=== PATIENT | male | born 1985 | race Two or more races ===

== ENCOUNTER 2021-01-05 10:46 | Emergency (ER) | payer SELFPAY ==
--- NOTE | 2021-01-05 10:55 | EDM.PDOC ---
ED HPI GENERAL MEDICAL PROBLEM - General Chief Complaint: Fever Stated Complaint: COUGH, FEVER Time Seen by Provider: 01/05/21 10:46 Source of Information: Reports: Patient. Denies: Old Records (No [facility] records available) History Limitations: Reports: No Limitations - History of Present Illness INITIAL COMMENTS - FREE TEXT/NARRATIVE: Patient drove himself to the emergency room via private automobile for evaluation of persistent nonspecific dyspnea, nonproductive cough, and 8/10 pleuritic type symptoms with symptoms present for the last 2 weeks. He did receive his first Moderna COVID-19 immunization 3 weeks ago with symptoms starting shortly thereafter, including fever and chills, nonspecific fatigue, etc. He was evaluated by his regular provider 3 days ago with apparent negative Covid test at that time. He is missing work today. The patient did not get an influenza booster this past season. His cough is worsened today with some secondary emesis. The patient did take Tylenol yesterday evening but no other recent antipyretic medications or known exposure to infection. No recent history of abdominal pain, heartburn, nausea, diarrhea, melena, gross hematochezia, or any food intolerance, including fatty foods, etc.. The patient denies any chest pressure, heart flutter, dizziness, orthostasis, orthopnea, diaphoresis, paresthesias, recent decreased exercise tolerance, or any other anginal-type symptoms. No history of recent headaches, visual changes, diplopia, change in mental status, or other change in neurological status. He denies any gross hematuria, colic, or other UTI symptoms. Onset: Gradual, Other (As above) Duration: Week(s):, Getting Worse Location: Reports: Chest. Denies: Head, Face, Neck, Abdomen, Back, Upper Extremity, Left, Upper Extremity, Right, Radiates to Quality: Reports: Ache Severity: Moderate Improves with: Reports: None Worsens with: Reports: None Context: Reports: Other (As above). Denies: Sick Contact, Trauma Associated Symptoms: Reports: Chest Pain (Pleurisy), Cough, Fever/Chills, Nausea/Vomiting (As above. No current nausea), Shortness of Breath. Denies: Confusion, cough w sputum, Diaphoresis, Headaches, Loss of Appetite, Rash, Seizure, Weakness Treatments LIFELINE REPRESENTATIVES: Reports: Acetaminophen Throat Pain Score (Numeric/FACES): 8 (Actually chest pain/pleurisy) - Related Data Allergies Allergy/AdvReac Type Severity Reaction Status Date / Time No Known Allergies Allergy Verified 01/05/21 10:51 Home Meds: Home Meds Budesonide [Pulmicort Flexhaler] 1 inhalation INH BID #1 inhaler 01/05/21 [Rx] glipiZIDE [Glucotrol XL] 20 mg PO DAILY 01/05/21 [History] metFORMIN [Glucophage] 1,000 mg PO BIDMEALS 01/05/21 [History] Past Medical History Endocrine/Metabolic History: Reports: Diabetes, Type II - Infectious Disease History Infectious Disease History: Denies: Novel Coronavirus (Initial Moderna in December 2020.) Social & Family History - Tobacco Use Tobacco Use Status *Q: Never Tobacco User Tobacco Use Within Last Twelve Months: No Used Tobacco, but Quit: No Smoking Cessation Information Provided To Patient: No Second Hand Smoke Exposure: No Second Hand Smoke Education Provided: No - Living Situation & Occupation 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 ED EXAM, GENERAL - Physical Exam Exam: See Below Exam Limited By: No Limitations General Appearance: Alert, WD/WN, No Apparent Distress Eye Exam: Bilateral Eye: EOMI, Normal Inspection (No vertigo or nystagmus), PERRL Ears: Normal External Exam, Normal Canal (Moderate cerumen in the left EAC), Hearing Grossly Normal, Normal TMs Nose: Normal Mucosa, No Blood, Clear Rhinorrhea Throat/Mouth: Normal Lips, Normal Gums, Normal Oropharynx, Normal Voice, No Airway Compromise. No: Normal Teeth (Multiple missing teeth with moderate caries in the right lower to last premolars with no evidence of abscess, drainage, etc.), Dysphagia, Inflammation, Perioral Cyanosis Head: Atraumatic, Normocephalic. No: Facial Swelling, Facial Tenderness, Sinus Tenderness Neck: Normal Inspection, Supple, Non-Tender, Full Range of Motion. No: Carotid Bruit, Lymphadenopathy (L), Lymphadenopathy (R), Thyromegaly Respiratory/Chest: No Respiratory Distress, Lungs Clear, Normal Breath Sounds, No Accessory Muscle Use, Chest Non-Tender. No: Pleural Rub, Retractions Cardiovascular: Normal Peripheral Pulses, Regular Rate, Rhythm, No Edema, No Gallop, No JVD, No Murmur, No Rub. No: Gallop/S3, Gallop/S4, Friction Rub Peripheral Pulses: 2+: Radial (L), Radial (R) GI/Abdominal: Normal Bowel Sounds, Soft, Non-Tender, No Organomegaly, No Distention, No Abnormal Bruit, No Mass, Other (Mildly obese). No: Guarding (Male) Exam: Deferred Rectal (Males) Exam: Deferred Back Exam: Normal Inspection, Full Range of Motion. No: CVA Tenderness (L), CVA Tenderness (R), Muscle Spasm Extremities: Normal Inspection, Normal Range of Motion, Non-Tender, No Pedal Edema, Normal Capillary Refill. No: Lisset's Sign Neurological: Alert, Oriented, CN II-XII Intact, Normal Cognition, Normal Gait, Normal Reflexes, No Motor/Sensory Deficits Psychiatric: Normal Affect, Normal Mood Skin Exam: Warm, Dry, Intact, Normal Color, No Rash, Tattoo(s) (Multiple). No: Diaphoretic, Wound/Incision Lymphatic: No Adenopathy Course - Vital Signs Last Recorded V/S: Last Vital Signs Temp 36.8 C 01/05/21 10:46 Pulse 96 01/05/21 10:46 Resp 20 01/05/21 10:46 BP 118/80 01/05/21 10:46 Pulse Ox 96 01/05/21 10:46 - Orders/Labs/Meds Orders: Active Orders 24 hr Category Date Time Status Chest 2V [CR] Stat Exams 01/05/21 10:56 Taken CULTURE BLOOD [BC] Stat Lab 01/05/21 11:13 Received CULTURE BLOOD [BC] Stat Lab 01/05/21 11:17 Received CULTURE URINE [RM] Routine Lab 01/05/21 12:00 Received Blood Culture x2 Reflex Set [OM.PC] Stat Oth 01/05/21 10:56 Ordered Isolation [COMM] Routine Oth 01/05/21 10:56 Active Obtain Past Medical Record [OM.PC] Stat Oth 01/05/21 10:56 Active Peripheral IV Insertion Adult [OM.PC] Stat Oth 01/05/21 10:56 Ordered Resuscitation Status Routine Resus Stat 01/05/21 10:56 Ordered Labs: Laboratory Tests 01/05/21 01/05/21 01/05/21 Range/Units 10:58 11:13 11:13 WBC 10.5 H (4.0-10.2) K/uL RBC 5.04 (4.33-5.41) M/uL Hgb 15.3 (13.1-16.8) g/dL Hct 43.9 (39.0-49.0) % MCV 87.1 (84.0-98.0) fL MCH 30.4 (28.2-33.3) pg MCHC 34.9 (31.7-36.0) g/dL RDW 12.7 (11.2-14.1) % Plt Count 280 (150-350) K/uL Neut % (Auto) 73.3 (45.0-80.0) % Lymph % (Auto) 19.6 (10.0-50.0) % [place] % (Auto) 6.1 (2.0-14.0) % Eos % (Auto) 0.7 (0.0-5.0) % Baso % (Auto) 0.3 (0.0-2.0) % Neut # (Auto) 7.70 H (1.40-7.00) K/uL Lymph # (Auto) 2.06 (0.50-3.50) K/uL [place] # (Auto) 0.64 (0.00-1.00) K/uL Eos # (Auto) 0.07 (0.00-0.50) K/uL Baso # (Auto) 0.03 (0.00-0.20) K/uL PT 9.2 L (9.5-12.0) SEC INR 0.9 APTT 24.1 L (24.5-32.8) SEC D-Dimer, Quantitative (0-400) ng/mL Sodium (136-145) mmol/L Potassium (3.5-5.1) mmol/L Chloride (98-107) mmol/L Carbon Dioxide (21.0-32.0) mmol/L BUN (7-18) mg/dL Creatinine (0.51-1.17) mg/dL Est Cr Clr Drug Dosing mL/min Estimated GFR (MDRD) mL/min Glucose (70-99) mg/dL Lactic Acid (0.4-2.0) mmol/L Calcium (8.5-10.1) mg/dL Magnesium (1.8-2.4) mg/dL Total Bilirubin (0.2-1.0) mg/dL AST (15-37) U/L ALT (12-78) U/L Alkaline Phosphatase (46-116) IU/L Total Protein (6.4-8.2) g/dL Albumin (3.4-5.0) g/dL TSH, Ultra Sensitive (0.358-3.740) mIU/mL Specimen Type Urine Color Urine Appearance Urine pH (5.0-9.0) Ur Specific [place] (1.005-1.030) Urine Protein (NEGATIVE) mg/dL Urine Glucose (UA) (NEGATIVE) mg/dL Urine Ketones (NEGATIVE) mg/dL Urine Occult Blood (NEGATIVE) Urine Nitrite (NEGATIVE) Urine Bilirubin (NEGATIVE) Urine Urobilinogen (0.2-1.0) E.U./dL Ur Leukocyte Esterase (NEGATIVE) U Hyaline Cast (Auto) Urine RBC /HPF Urine WBC /HPF Ur Epithelial Cells /LPF Urine Bacteria (NONE TO FEW) /HPF Urine Mucus (NEGATIVE) /LPF SARS-CoV-2 RNA (BARBARA) Negative (NEGATIVE) 01/05/21 01/05/21 01/05/21 Range/Units 11:13 11:13 11:13 WBC (4.0-10.2) K/uL RBC (4.33-5.41) M/uL Hgb (13.1-16.8) g/dL Hct (39.0-49.0) % MCV (84.0-98.0) fL MCH (28.2-33.3) pg MCHC (31.7-36.0) g/dL RDW (11.2-14.1) % Plt Count (150-350) K/uL Neut % (Auto) (45.0-80.0) % Lymph % (Auto) (10.0-50.0) % [place] % (Auto) (2.0-14.0) % Eos % (Auto) (0.0-5.0) % Baso % (Auto) (0.0-2.0) % Neut # (Auto) (1.40-7.00) K/uL Lymph # (Auto) (0.50-3.50) K/uL [place] # (Auto) (0.00-1.00) K/uL Eos # (Auto) (0.00-0.50) K/uL Baso # (Auto) (0.00-0.20) K/uL PT (9.5-12.0) SEC INR APTT (24.5-32.8) SEC D-Dimer, Quantitative < 100 (0-400) ng/mL Sodium 139 (136-145) mmol/L Potassium 4.2 (3.5-5.1) mmol/L Chloride 102 (98-107) mmol/L Carbon Dioxide 23.1 (21.0-32.0) mmol/L BUN 8 (7-18) mg/dL Creatinine 0.73 (0.51-1.17) mg/dL Est Cr Clr Drug Dosing 116.01 mL/min Estimated GFR (MDRD) > 60 mL/min Glucose 220 H (70-99) mg/dL Lactic Acid 2.4 H (0.4-2.0) mmol/L Calcium 8.2 L (8.5-10.1) mg/dL Magnesium 1.8 (1.8-2.4) mg/dL Total Bilirubin 0.5 (0.2-1.0) mg/dL AST 20 (15-37) U/L ALT 68 (12-78) U/L Alkaline Phosphatase 132 H (46-116) IU/L Total Protein 7.5 (6.4-8.2) g/dL Albumin 4.2 (3.4-5.0) g/dL TSH, Ultra Sensitive 0.373 (0.358-3.740) mIU/mL Specimen Type Urine Color Urine Appearance Urine pH (5.0-9.0) Ur Specific [place] (1.005-1.030) Urine Protein (NEGATIVE) mg/dL Urine Glucose (UA) (NEGATIVE) mg/dL Urine Ketones (NEGATIVE) mg/dL Urine Occult Blood (NEGATIVE) Urine Nitrite (NEGATIVE) Urine Bilirubin (NEGATIVE) Urine Urobilinogen (0.2-1.0) E.U./dL Ur Leukocyte Esterase (NEGATIVE) U Hyaline Cast (Auto) Urine RBC /HPF Urine WBC /HPF Ur Epithelial Cells /LPF Urine Bacteria (NONE TO FEW) /HPF Urine Mucus (NEGATIVE) /LPF SARS-CoV-2 RNA (BARBARA) (NEGATIVE) 01/05/21 Range/Units 12:00 WBC (4.0-10.2) K/uL RBC (4.33-5.41) M/uL Hgb (13.1-16.8) g/dL Hct (39.0-49.0) % MCV (84.0-98.0) fL MCH (28.2-33.3) pg MCHC (31.7-36.0) g/dL RDW (11.2-14.1) % Plt Count (150-350) K/uL Neut % (Auto) (45.0-80.0) % Lymph % (Auto) (10.0-50.0) % [place] % (Auto) (2.0-14.0) % Eos % (Auto) (0.0-5.0) % Baso % (Auto) (0.0-2.0) % Neut # (Auto) (1.40-7.00) K/uL Lymph # (Auto) (0.50-3.50) K/uL [place] # (Auto) (0.00-1.00) K/uL Eos # (Auto) (0.00-0.50) K/uL Baso # (Auto) (0.00-0.20) K/uL PT (9.5-12.0) SEC INR APTT (24.5-32.8) SEC D-Dimer, Quantitative (0-400) ng/mL Sodium (136-145) mmol/L Potassium (3.5-5.1) mmol/L Chloride (98-107) mmol/L Carbon Dioxide (21.0-32.0) mmol/L BUN (7-18) mg/dL Creatinine (0.51-1.17) mg/dL Est Cr Clr Drug Dosing mL/min Estimated GFR (MDRD) mL/min Glucose (70-99) mg/dL Lactic Acid (0.4-2.0) mmol/L Calcium (8.5-10.1) mg/dL Magnesium (1.8-2.4) mg/dL Total Bilirubin (0.2-1.0) mg/dL AST (15-37) U/L ALT (12-78) U/L Alkaline Phosphatase (46-116) IU/L Total Protein (6.4-8.2) g/dL Albumin (3.4-5.0) g/dL TSH, Ultra Sensitive (0.358-3.740) mIU/mL Specimen Type Urincc Urine Color Yellow Urine Appearance Clear Urine pH 5.5 (5.0-9.0) Ur Specific [place] >= 1.030 (1.005-1.030) Urine Protein 30 H (NEGATIVE) mg/dL Urine Glucose (UA) 100 H (NEGATIVE) mg/dL Urine Ketones Trace H (NEGATIVE) mg/dL Urine Occult Blood Small H (NEGATIVE) Urine Nitrite Negative (NEGATIVE) Urine Bilirubin Negative (NEGATIVE) Urine Urobilinogen 0.2 (0.2-1.0) E.U./dL Ur Leukocyte Esterase Negative (NEGATIVE) U Hyaline Cast (Auto) Few Urine RBC 5-10 H /HPF Urine WBC 0-5 /HPF Ur Epithelial Cells Not seen /LPF Urine Bacteria Rare (NONE TO FEW) /HPF Urine Mucus Rare H (NEGATIVE) /LPF SARS-CoV-2 RNA (BARBARA) (NEGATIVE) Urine specimen sent for culture and sensitivity Blood cultures x2 were collected. Microbiology 01/05/21 10:57 Influenza Type A Antigen Screen - Final Nasal, Unspecified NEGATIVE INFLUENZA A VIRUS AG REFERENCE RANGE: NEGATIVE Influenza Type B Antigen Screen - Final NEGATIVE INFLUENZA B VIRUS AG REFERENCE RANGE: NEGATIVE Meds: Medications Discontinued Medications Generic Name Dose Route Start Last Admin Trade Name Freq PRN Reason Stop Dose Admin Budesonide 0.5 mg 01/05/21 10:56 01/05/21 11:25 Budesonide 0.5 Mg/2 Ml Neb Susp NEB 01/05/21 10:57 0.5 mg ONETIME ONE Administration Lactated Ringer's 1,000 mls @ 999 mls/hr 01/05/21 11:56 01/05/21 12:05 Ringers, Lactated IV 01/05/21 12:56 999 mls/hr .BOLUS ONE Administration Sodium Chloride 10 ml 01/05/21 10:56 Sodium Chloride 0.9% 10 Ml Syringe FLUSH ASDIRECTED PRN Keep Vein Open - Radiology Interpretation Free Text/Narrative:: Chest x-ray, PA and lateral shows mild prominence of the proximal aortic arch with mild osteoarthritic changes but no pulmonary infiltrates, pneumothorax, cardiomegaly, CHF, etc. Departure - Departure Time of Disposition: 13:20 Disposition: Home, Self-Care 01 Condition: Good Clinical Impression: Elevated lactic acid level, Hypocalcemia Dyspnea Qualifiers: Dyspnea type: shortness of breath Qualified Code(s): R06.02 - Shortness of breath Diabetes mellitus Qualifiers: Diabetes mellitus type: type 2 Diabetes mellitus group home insulin use: without soil conservationist use Diabetes mellitus complication status: without complication Qualified Code(s): E11.9 - Type 2 diabetes mellitus without complications Fatigue Qualifiers: Fatigue type: other Qualified Code(s): R53.83 - Other fatigue - Discharge Information *PRESCRIPTION DRUG MONITORING PROGRAM REVIEWED*: Not Applicable *COPY OF PRESCRIPTION DRUG MONITORING REPORT IN PATIENT KRYSTLE: Not Applicable Prescriptions: Budesonide [Pulmicort Flexhaler] 1 inhalation INH BID #1 inhaler Referrals: ARVIND BOTELLO [Other] Forms: ED Department Discharge, ED Department Discharge, ED Return to Work/School Form Additional Instructions: 1. Followup with your regular provider on 01/07/2021 with recommended repeat CBC, basic metabolic panel, and lactic acid level at that time as directed. Bring these discharge instructions with you to that visit. 2. Tylenol 650 mg by mouth every 4 hours and/or OTC ibuprofen 2-3 tabs by mouth every 6 hours with food as directed./needed. You may stagger these medications for 48-72 hours only, which essentially means that you are receiving a pain medication about every 2 hours. 3. Work excuse- See Form 4. Encourage oral fluids as discussed, including sports drinks, etc. 5. Immediately after this visit verify that your cellular telephone's voicemail has been activated and is empty. Also verify that your home telephone's answering machine is operating properly and has space to receive messages. Note that it is sometimes necessary for us to be able to contact you at a later date to discuss your medical care. 6. Please remember that we are ALWAYS here for you and want to answer any questions you may have. Feel free to call the hospital any time and we call you back JENNIFER. 7. Consider PFTs/lung function test, further work-up of your fatigue, etc. depending on your clinical course. Note that your thyroid function/TSH was normal today. Sepsis Event Note (ED) - Evaluation Sepsis Screening Result: Possible Sepsis Risk - Focused Exam Vital Signs: Vital Signs Temp Pulse Resp BP Pulse Ox 05/01/21 10:46 36.8 C 96 20 118/80 96 - Problem List & Annotations (1) Dyspnea SNOMED Code(s): 263417815 Code(s): R06.00 - DYSPNEA, UNSPECIFIED Status: Acute Priority: High Onset Date: ~01/05/21 Annotation/Comment:: 2-3-week history of nonspecific dyspnea with negative COVID-19 assessment today and also on 01/02/2019 by his history. He was advised to still get his second COVID-19 immunization as already scheduled. Work excuse provided. Close follow-up by medical provider as per discharge instructions. Some improvement with Pulmicort nebulizer t reatment in the emergency room. Continue Pulmicort inhaler therapy. IM Depo- Medrol not given secondary to patient's history of diabetes. Consider PFTs once his clinical status has stabilized. Qualifiers: Dyspnea type: shortness of breath Qualified Code(s): R06.02 - Shortness of breath; R06.00 - Dyspnea, unspecified; R06.01 - Orthopnea (2) Fatigue SNOMED Code(s): 28462639 Code(s): R53.83 - OTHER FATIGUE Status: Acute Priority: High Onset Date: ~01/05/21 Annotation/Comment:: Nonspecific fatigue since his COVID-19 immunization as above. Continue to observe closely by regular provider. TSH normal today. Qualifiers: Fatigue type: other Qualified Code(s): R53.83 - Other fatigue (3) Diabetes mellitus SNOMED Code(s): 60800311 Code(s): E11.9 - TYPE 2 DIABETES MELLITUS WITHOUT COMPLICATIONS Status: Tasha ortiz Priority: Medium Annotation/Comment:: Close follow-up by his regular provider with apparent upcoming glycosylated hemoglobin by his history. He does not take Accu-Cheks at home. His random glucose level today was somewhat elevated, although he did eat prior to arrival. Qualifiers: Diabetes mellitus type: type 2 Diabetes mellitus soil conservationist insulin use: without group home use Diabetes mellitus complication status: without complication Qualified Code(s): E11.9 - Type 2 diabetes mellitus without complications (4) Elevated lactic acid level SNOMED Code(s): 5748030 Code(s): R79.89 - OTHER SPECIFIED ABNORMAL FINDINGS OF BLOOD CHEMISTRY Status: Acute Priority: High Onset Date: 01/05/21 Annotation/Comment:: 1 L lactated Ringer's IV bolus given. No clinical evidence of sepsis with only minimal leukocytosis and no fever, etc. Antibiotic therapy not initiated in this time. Urine specimen sent for culture and sensitivity with blood cultures x2 collected. Close follow-up by regular provider as per discharge instructions. (5) Hypocalcemia SNOMED Code(s): 0091321 Code(s): E83.51 - HYPOCALCEMIA Status: Acute Priority: Medium Onset Date: 01/05/21 Annotation/Comment:: Mild. Observe for now. - Problem List Review Problem List Initiated/Reviewed/Updated: Yes - My Orders Last 24 Hours: My Active Orders 01/05/21 10:56 Chest 2V [CR] Stat Blood Culture x2 Reflex Set [OM.PC] Stat Isolation [COMM] Routine Obtain Past Medical Record [OM.PC] Stat Peripheral IV Insertion Adult [OM.PC] Stat Resuscitation Status Routine 01/05/21 11:13 CULTURE BLOOD [BC] Stat 01/05/21 11:17 CULTURE BLOOD [BC] Stat 01/05/21 12:00 CULTURE URINE [RM] Routine - Assessment/Plan Last 24 Hours: My Active Orders 01/05/21 10:56 Chest 2V [CR] Stat Blood Culture x2 Reflex Set [OM.PC] Stat Isolation [COMM] Routine Obtain Past Medical Record [OM.PC] Stat Peripheral IV Insertion Adult [OM.PC] Stat Resuscitation Status Routine 01/05/21 11:13 CULTURE BLOOD [BC] Stat 01/05/21 11:17 CULTURE BLOOD [BC] Stat 01/05/21 12:00 CULTURE URINE [RM] Routine Assessment:: As above Plan: As above. Extensive precautions were given to the patient, who is in agreement with the treatment plan. See Patient Instructions for further treatment and plan.
[2021-01-05] MEDS ORDERED: Sodium Chloride 0.9% 10 ML Syringe FLUSH PRN (10:56)
[2021-01-05] MEDS: Budesonide 0.5 MG/2 ML Neb Susp NEB ONE (11:25)
[2021-01-05 11:42] LABS: PTT,PARTIAL THROMBOPLSTIN TIME 24.1 SEC (24.5-32.8)
[2021-01-05 11:53] LABS: CHLORIDE,CL 102 mmol/L (98-107); SODIUM,NA 139 mmol/L (136-145)
[2021-01-05] MEDS: Lactated Ringers 1,000 ML IV ONE (12:05)
== END 2021-01-05 13:20 | disposition home or self-care (01) ==
LOC: LL.ED 10:46
DX: E83.51 Hypocalcemia (principal); E11.9 Type 2 diabetes mellitus without complications; R74.01 Elevation of levels of liver transaminase levels; H61.22 Impacted cerumen, left ear; K02.9 Dental caries, unspecified; Z79.84 Long term (current) use of oral hypoglycemic drugs; Z20.822 Contact with and (suspected) exposure to COVID-19
CPT/HCPCS: 36415; 71046; 80053; 81001; 83605; 83735; 84443; 85025; 85379; 85610; 85730; 87040; 87086; 87804; 99284; 99285-25; J7120; U0002

== ENCOUNTER 2021-02-28 02:15 | Emergency (ER) | payer SELFPAY ==
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
[2021-02-28] MEDS ORDERED: Bacitracin/Neomycin/Polymyxin B Oint 0.9 GM U/D Packet TOP ONE (02:40)
== END 2021-02-28 03:50 | disposition home or self-care (01) ==
LOC: LL.ED 02:15
DX: S01.111A Laceration without foreign body of right eyelid and periocular area, initial encounter (principal); K02.9 Dental caries, unspecified; E11.9 Type 2 diabetes mellitus without complications; I10 Essential (primary) hypertension; Z79.84 Long term (current) use of oral hypoglycemic drugs; Y04.2XXA Assault by strike against or bumped into by another person, initial encounter
CPT/HCPCS: 12011; 70140; 99283; 99283-25